=== PATIENT | female | born 1960 | race Hispanic/Latino ===

== ENCOUNTER 2020-04-19 16:03 | Outpatient (CLI) | payer BC ==
--- NOTE | 2020-04-20 09:16 | Mammography Report ---
DIGITAL SCREENING MAMMOGRAM WITH CAD, 04/19/2020 INDICATION: Routine screening mammography. SCREENING TECHNIQUE: Digital bilateral 2D mammography was obtained in the craniocaudal and mediolateral obliq ue projections. This examination was interpreted with the benefit of Computer-Aided Detection analysi s. COMPARISON: None available at the time of interpretation. There were reportedly images from July 2018 from [facility] which I do not have for comparison. FINDINGS: Breast Density: The breasts are heterogeneously dense, which may obscure small masses. There is no evidence of dominant mass, suspicious calcifications or architectural distortion in eithe r breast. Old biopsy change on the left. There are a few scattered nodular densities in both breasts as well as what may be asymmetric breast tissue in the upper outer left breast. IMPRESSION: Follow up recommendation: Obtain prior study for comparison. Recommend comparison with the 2018 image s to assess these nodular densities and what is most likely asymmetric left upper outer breast tissue . Category 0: Incomplete. Needs additional imaging evaluation and/or prior mammograms for comparison. A "normal" or negative report should not discourage follow up or biopsy of a clinically significant f inding. A written summary of these findings will be mailed to the patient. The patient will be entered into a mammography reporting system which will generate a reminder letter for the patient's next appointmen t at the appropriate interval. The [employer] recommends yearly mammograms starting at age 40 and continuing as l inocencia as a woman is in good health. Breast MRI is recommended for women with an approximate 20-25% or greater lifetime risk of breast cancer, including women with a strong family history of breast or ova jaimie cancer or who have been treated for Hodgkin's disease. Signer Name: Enmanuel Dugan MD Signed: 04/20/2020 9:11 AM Workstation Name: [id number]
== END 2020-04-19 16:04 | disposition home or self-care (01) ==
LOC: SPVWC 16:03
PROVIDERS: ATTEND Nurse Practitioner Women's Health
DX: Z12.31 Encounter for screening mammogram for malignant neoplasm of breast (principal); N64.89 Other specified disorders of breast
CPT/HCPCS: 77067

== ENCOUNTER 2020-07-26 14:42 | Outpatient (CLI) | payer BC ==
--- NOTE | 2020-07-26 17:59 | Mammography Report ---
LEFT DIGITAL DIAGNOSTIC MAMMOGRAM WITH CAD , 07/26/2020 LEFT LIMITED BREAST ULTRASOUND CLINICAL INFORMATION / INDICATION: Abnormal screening mammogram. Screening recall the left breast. Th e patient was recalled for additional evaluation of a nodular density in the upper outer left breast. TECHNIQUE: Digital left mammographic imaging was performed. Spot compression views were obtained. [place] ited ultrasound was performed. This examination was interpreted with the benefit of Computer-Aided De tection (CAD) analysis. COMPARISON: Screening mammogram, 04/19/2020 FINDINGS: Breast Density: The breasts are heterogeneously dense, which may obscure small masses. MAMMOGRAPHIC FINDINGS: Spot compression views of the upper outer left breast demonstrate a well-circu mscribed oval hypoechoic nodule at the 1:00 position posterior depth measuring 4 mm. ULTRASOUND FINDINGS: Targeted ultrasound evaluation was performed of the area of interest. Sonograp hic evaluation of the left breast demonstrates no evidence of suspicious solid mass or shadowing. The re is no focal sonographic abnormality to correspond to the nodular density seen on the mammogram. IMPRESSION: Oval circumscribed 4 mm nodular density at the 1:00 position posterior depth in the left breast. This has a benign mammographic appearance and is most likely related to a small cyst or intra mammary lymph node. A six-month follow-up left mammogram is recommended to confirm stability. Follow up recommendation: Short term follow up in 6 months. BI-RADS Category 3: Probably Benign. Followup in 6 months. A "normal" or negative report should not discourage follow up or biopsy of a clinically significant f inding. A written summary of these findings will be mailed to the patient. The patient will be entered into a mammography reporting system which will generate a reminder letter for the patient's next appointmen t at the appropriate interval. According to the [employer], yearly mammograms are recommended starting at age 40 and continuing as long as a woman is in good health. Breast MRI is recommended for women with an alyx roximately 20-25% or greater lifetime risk of breast cancer, including women with a strong family his tory of breast or ovarian cancer and women who have been treated for Hodgkin's disease. Signer Name: Jennifer Kirby MD Signed: 07/26/2020 5:54 PM Workstation Name: [id number]
== END 2020-07-26 14:43 | disposition home or self-care (01) ==
LOC: SPVWC 14:42
PROVIDERS: ATTEND Obstetrics & Gynecology
DX: N63.21 Unspecified lump in the left breast, upper outer quadrant (principal); R92.8 Other abnormal and inconclusive findings on diagnostic imaging of breast

== ENCOUNTER 2021-02-01 08:24 | Outpatient (CLI) | payer OTHER | END 2021-02-01 08:25 | disposition home or self-care (01) | LOC: SPVWC 08:24 | PROVIDERS: ATTEND Nurse Practitioner Women's Health | DX: N63.21 Unspecified lump in the left breast, upper outer quadrant (principal) | CPT/HCPCS: 77065; G0279 ==

== ENCOUNTER 2021-12-26 14:47 | Outpatient (CLI) | payer OTHER | END 2021-12-26 14:48 | disposition home or self-care (01) | LOC: SPVWC 14:47 | PROVIDERS: ATTEND Internal Medicine | DX: Z12.31 Encounter for screening mammogram for malignant neoplasm of breast (principal) | CPT/HCPCS: 77067 ==